=== PATIENT | female | born 1995 | race Caucasian/White ===

== ENCOUNTER 2016-09-24 20:54 | Emergency (ER) ==
[2016-09-24 21:06] VITALS: BP 142/90; TEMP 97.4; BMI 40.7
--- NOTE | 2016-09-24 21:25 | ED.PDOC ---
General ED Provider: Dr. ERON TAVERA Chief Complaint: Abdominal Pain Stated Complaint: been hurting in the stomach for couple days, but today its been hurting more, Time Seen by Physician: 21:24 Mode of Arrival: Walk-In Information Source: Patient Primary Care Provider: KANNAN RODRIGUEZ Nursing and Triage Documentation Reviewed and Agree: Yes GI Complaint Exam - Abdominal Pain Complaint/Exam Onset: Gradual Symptoms Are: Still present Timing: Constant Initial Severity: Moderate Current Severity: Moderate Location of Pain: Discrete Character: Reports: Dull, Aching, Throbbing Aggravating: Reports: Movement, Food Alleviating: Reports: None Associated Signs and Symptoms: Reports: Nausea. Denies: Diaphoresis, Fever, Cough, Chest pain, Dizziness, Back pain, Constipation, Blood in stool, Dysuria, Urinary frequency, Decreased urine output, Decreased appetite, Vaginal bleeding , Vaginal discharge, Vomiting, Diarrhea, Sore throat, Decreased activity Related History: Reports: Similar episode AAA Risk Factors: Reports: None Cardiac Risk Factors: Reports: None Ectopic Risk Factors: Reports: None Ovarian Torsion Risk Factors: Reports: None Surgical Obstruction Risk Factors: Reports: None Related Surgical History: Reports: None Patient Rh Status: Unknown Abdominal Findings: Absent: Pulsatile mass, Abdominal distention, Unequal femoral pulses Differential Diagnoses: Appendicitis, Pancreatitis, Renal Colic, UTI, Review of Systems - Review Of Systems Constitutional: Reports: Malaise, Weakness Eyes: Reports: No symptoms Ears, Nose, Mouth, Throat: Reports: No symptoms Respiratory: Reports: No symptoms Cardiac: Reports: No symptoms GI: Reports: Abdomen distended, Abdominal pain : Reports: No symptoms Musculoskeletal: Reports: No symptoms Skin: Reports: No symptoms Neurological: Reports: No symptoms Endocrine: Reports: No symptoms Hematologic/Lymphatic: Reports: No symptoms All Other Systems: Reviewed and Negative Past Medical History - Past Medical History Previously Healthy: Yes Endocrine: Reports: None Cardiovascular: Reports: None Respiratory: Reports: None Hematological: Reports: None Gastrointestinal: Reports: None Genitourinary: Reports: None Neuro/Psych: Reports: None Musculoskeletal: Reports: None Cancer: Reports: None Last Menstrual Period: LAST WEEK - Surgical History General Surgical History: Reports: Tonsillectomy, Adenoidectomy - Family History Family History: Reports: None - Social History Smoking Status: Current every day smoker, Light tobacco smoker Smoking Cessation Counseling Time: > 3 min - 10 min Hx Substance Use: No Alcohol Screening: None - Immunizations Tetanus Shot up to Date: Yes Physical Exam - Physical Exam Appearance: Ill-appearing, Obese Pain Distress: Moderate Eyes: DARIUSZ, EOMI, Conjunctiva clear ENT: Ears normal, Nose normal, Oropharynx normal Respiratory: Airway patent, Breath sounds clear, Breath sounds equal, Respirations nonlabored Cardiovascular: RRR, Pulses normal, No rub, No murmur GI/: Soft, Tender Musculoskeletal: Normal strength, ROM intact, No edema, No calf tenderness Skin: Warm, Dry, Normal color Neurological: Sensation intact, Motor intact, Reflexes intact, Cranial nerves intact, Alert, Oriented Psychiatric: Affect appropriate, Mood appropriate Interpretation - Radiology Interpretation Radiology Interpretation By: Radiologist Radiology Results: Negative Exam Interpreted: CT Scan Critical Care Note - Critical Care Note Total Time (mins): 0 Course - Course Hematology/Chemistry: 09/24/16 21:35 09/24/16 21:35 Orders, Labs, Meds: Lab Review 09/24/16 09/24/16 21:25 21:35 WBC 12.82 H RBC 4.76 Hgb 12.3 Hct 37.1 MCV 77.9 L MCH 25.8 L MCHC 33.2 RDW Coeff of [place] 13.2 Plt Count 265 Immature Gran % (Auto) 0.3 Neut % (Auto) 72.4 Lymph % (Auto) 19.3 [place] % (Auto) 5.6 Eos % (Auto) 2.2 Baso % (Auto) 0.2 Immature Gran # (Auto) 0.0 Neut # 9.3 H Lymph # 2.5 [place] # 0.7 Eos # 0.3 Baso # 0.0 Sodium 136 Potassium 3.5 Chloride 106 Carbon Dioxide 21 Anion Gap 12.5 BUN 10 Creatinine 0.80 Estimated GFR (MDRD) 91.00 BUN/Creatinine Ratio 12.50 Glucose 145 H Calcium 9.1 Total Bilirubin 0.28 AST 13 L ALT 13 Alkaline Phosphatase 47 Total Protein 7.1 Albumin 3.5 Globulin 3.6 Albumin/Globulin Ratio 0.97 Amylase 24 L Lipase 13 Urine Color Yellow Urine Clarity Clear Urine pH 6.5 Ur Specific [place] 1.015 Urine Protein Negative Urine Glucose (UA) Negative Urine Ketones Negative Urine Blood 2+ Urine Nitrite Negative Urine Bilirubin Negative Urine Urobilinogen 0.2 Ur Leukocyte Esterase Negative Urine Microscopic RBC 2-5 Ur Squamous Epith Cells 5-10 Amorphous Sediment Trace Urine Bacteria Trace Urine Test Negative Orders Category Date Time Status AMYLASE Stat LAB 09/24/16 21:35 Completed CBC W/ AUTO DIFF Stat LAB 09/24/16 21:35 Completed COMPREHENSIVE METABOLIC PANEL Stat LAB 09/24/16 21:35 Completed LIPASE Stat LAB 09/24/16 21:35 Completed URINALYSIS C & S IF INDICATED Stat LAB 09/24/16 21:25 Completed URINE Stat LAB 09/24/16 21:25 Completed Ketorolac Tromethamine [Toradol] MEDS 09/24/16 22:07 Discontinued 60 mg IM ONCE STA Ondansetron HCl/Pf [Zofran 4 mg/2 ml] MEDS 09/24/16 22:07 Discontinued 4 mg IM ONCE STA CT ABDOMEN/PELVIS WO CONTRAST Stat RADS 09/24/16 21:23 Completed Medications Discontinued Medications Generic Name Dose Route Start Last Admin Trade Name Freq PRN Reason Stop Dose Admin Ketorolac Tromethamine 60 mg 09/24/16 22:07 09/24/16 22:15 Toradol IM 09/24/16 22:08 60 mg ONCE STA Administration Ondansetron HCl 4 mg 09/24/16 22:07 09/24/16 22:15 Zofran 4 Mg/2 Ml IM 09/24/16 22:08 4 mg ONCE STA Administration Vital Signs: Temp Pulse Resp BP Pulse Ox 09/24/16 20:54 97.4 F L 89 18 142/90 H 99 Departure - Departure Time of Disposition: 22:51 Disposition: HOME SELF-CARE Discharge Problem: Abdominal pain Instructions: Abdominal Pain (ED) Condition: Stable Pt referred to PMD for follow-up: Yes Additional Instructions: Increase hydration soft diet 3-4 day if not better needs f/u with PMD Allergies/Adverse Reactions: Allergies diphenhydramine [From Benadryl] Adverse Reaction (Verified 09/24/16 21:03) Vomiting prednisone Adverse Reaction (Verified 09/24/16 21:03) Hives Home Medications: Ambulatory Orders 1 [No Reported Medications] 08/21/15 Disposition Discussed With: Patient
[2016-09-24 21:37] LABS: BASOPHILS % (AUTO) 0.2 % (0.0-3.0); EOSINOPHILS # (AUTO) 0.3 K/ul (0.0-0.7); EOSINOPHILS % (AUTO) 2.2 % (0.0-7.0); HEMATOCRIT 37.1 % (37.0-47.0); HEMOGLOBIN 12.3 g/dl (12.0-16.0); IMMATURE GRANULOCYTE % (AUTO) 0.3 % (0.0-5.0); LYMPHOCYTES # (AUTO) 2.5 K/uL (0.60-3.4); LYMPHOCYTES % (AUTO) 19.3 (10.0-50.0); MEAN CORPUSCULAR HEMOGLOBIN 25.8 pg (27.0-31.0); MEAN CORPUSCULAR HGB CONC 33.2 (31.8-35.4); MEAN CORPUSCULAR VOLUME 77.9 fl (81.0-99.0); MONOCYTES # (AUTO) 0.7 K/uL (0.4-2.0); MONOCYTES % (AUTO) 5.6 (0-10); NEUTROPHILS # (AUTO) 9.3 K/ul (2.0-6.9); NEUTROPHILS % (AUTO) 72.4; PLATELET COUNT 265 10^3/uL (140-440); RED BLOOD COUNT 4.76 10^6/ul (4.20-5.40); WHITE BLOOD COUNT 12.82 K/ul (4.6-10.2)
[2016-09-24 21:39] LABS: BILIRUBIN,URINE Negative (NEGATIVE); KETONES,URINE Negative (NEGATIVE); LEUKOCYTE ESTERASE ,URINE Negative (NEGATIVE); NITRITE,URINE Negative (NEGATIVE); PH,URINE 6.5 (5-9); PROTEIN,URINE Negative (NEGATIVE); URINE, BLOOD 2+ (NEGATIVE)
[2016-09-24 21:40] LABS: URINE PREGNANCY INTERNAL QC INTERNAL QC VALID
[2016-09-24 21:44] LABS: ADD URINE MICROSCOPIC YES; BACTERIA,URINE TRACE (NOT PRESENT)
[2016-09-24 21:57] LABS: ALBUMIN 3.5 g/dL (3.4-5.0); ALBUMIN/GLOBULIN RATIO 0.97; ANION GAP 12.5; BILIRUBIN,TOTAL 0.28 mg/dL (0.00-1.20); BUN/CREATININE RATIO 12.5; CALCIUM 9.1 mg/dL (8.2-10.2); CREATININE 0.8 mg/dL (0.60-1.30); POTASSIUM 3.5 mmol/L (3.5-5.10); TOTAL PROTEIN 7.1 g/dL (6.4-8.2)
[2016-09-24] MEDS: ZOFRAN 4 MG/2 ML IM STA (22:15)
[2016-09-24] MEDS: TORADOL IM STA (22:15)
--- NOTE | 2016-09-24 22:43 | CT ---
Exam: CT of the abdomen and pelvis without contrast History: Abdominal pain Technique: [address] of the abdomen and pelvis without intravascular contrast FINDINGS: The lung bases are clear. No significant liver abnormality. The adrenals, pancreas and sp jayashree are unremarkable. The stomach and hiatus are unremarkable.The gallbladder appears normal. Kidne ys and proximal collecting system are unremarkable. The appendix is normal. Bowel loops demonstrate normal caliber. No inflamatory change seen in the mesentery or retroperitoneum. Vascular structures appear normal by noncontrast CT. Pelvic genitourinary structures appear normal. Pelvic bowel loops are unremarkable. No inflammatory change in the pelvic fat. No acute abnormality of the abdominal or pelvic skeleton. Impression: 1. No inflammatory process, bowel or urinary obstruction is seen. No abnormalities of the abdomen or pelvis.
== END 2016-09-24 22:57 | disposition home or self-care (01) ==
LOC: ED 20:54
DX: R10.9 Unspecified abdominal pain (principal); F17.210 Nicotine dependence, cigarettes, uncomplicated
CPT/HCPCS: 36415; 80053; 81001; 81025; 82150; 83690; 85025; 96372; 99283

== ENCOUNTER 2016-10-26 13:06 | Emergency (ER) ==
[2016-10-26 13:06] VITALS: BMI 40.7
[2016-10-26 13:13] VITALS: BP 133/85; TEMP 98.2
--- NOTE | 2016-10-26 13:16 | ED.PDOC ---
General ED Provider: Dr. ZOYA AVINA JR Chief Complaint: Abdominal Pain Stated Complaint: woke up with stomach pain and temp of 99.9[ End ]0400 98.2 90 18 95% 133/85 2/10 placement of control stent..removed for bleeding. [ End ] lmp 10/19/16 smoke need work note States I just need a work excuse now. Had work-up for similar symptooms in September 2016[ End ]. hx preecclampsia not having pain now states had bleeding and pain for one month took couple weeks for pain qnd bleeding to resolve after implant removed(felt this was cause of pain and bleeding) seen in ER no significant problems found, pain resolved for days now back not as bad sharp midabdominal concenred she may be , missed work at [employer]. : 09/24/16 : Abdominal Pain. Stated Complaint: been hurting in the stomach for couple days, but today its been hurting more, Primary Care : KANNAN RODRIGUEZ. : Negative: CT ScanWBC 12.82 HMCV 77.9 L Urine Blood 2+. Urine Test Negative. Ketorolac Tromethamine 60 mgOndansetron HCl 4 mg. Abdominal pain Increase hydration. soft diet 3-4 day if not better needs f/u with PMD Time Seen by Physician: 13:16 Mode of Arrival: Walk-In Information Source: Patient Exam Limitations: No limitations Primary Care Provider: KANNAN RODRIGUEZ Nursing and Triage Documentation Reviewed and Agree: No Review of Systems - Review Of Systems Constitutional: Reports: No symptoms Eyes: Reports: No symptoms Ears, Nose, Mouth, Throat: Reports: No symptoms Respiratory: Reports: No symptoms Cardiac: Reports: No symptoms GI: Reports: Abdominal pain : Reports: Pain Musculoskeletal: Reports: No symptoms Skin: Reports: No symptoms Neurological: Reports: No symptoms Endocrine: Reports: No symptoms Hematologic/Lymphatic: Reports: No symptoms All Other Systems: Other Past Medical History - Past Medical History Previously Healthy: Yes Endocrine: Reports: None Cardiovascular: Reports: None Respiratory: Reports: None Hematological: Reports: None Gastrointestinal: Reports: None Genitourinary: Reports: None Neuro/Psych: Reports: None Musculoskeletal: Reports: None Cancer: Reports: None Last Menstrual Period: 10/19/16 - Surgical History General Surgical History: Reports: Tonsillectomy, Adenoidectomy - Family History Family History: Reports: None - Social History Smoking Status: Current every day smoker, Heavy tobacco smoker Hx Substance Use: No Alcohol Screening: Occasionally Physical Exam - Physical Exam Appearance: Well-appearing, Obese Ill-appearing: Mild Pain Distress: Mild Eyes: DARIUSZ, EOMI, Conjunctiva clear ENT: Ears normal, Nose normal, Oropharynx normal Neck: Supple Respiratory: Airway patent, Breath sounds clear, Breath sounds equal, Respirations nonlabored Cardiovascular: RRR, Pulses normal, No rub, No murmur GI/: Soft, Nontender, No masses, Bowel sounds normal, No Organomegaly Musculoskeletal: Normal strength, ROM intact, No edema, No calf tenderness Skin: Warm, Dry, Normal color Neurological: Sensation intact, Motor intact, Reflexes intact, Cranial nerves intact, Alert, Oriented Psychiatric: Affect appropriate, Mood appropriate Critical Care Note - Critical Care Note Total Time (mins): 0 Course - Course Orders, Labs, Meds: Lab Review 10/26/16 13:22 Urine Color Yellow Urine Clarity Clear Urine pH 6.0 Ur Specific [place] 1.025 Urine Protein Negative Urine Glucose (UA) Negative Urine Ketones Negative Urine Blood Negative Urine Nitrite Negative Urine Bilirubin Negative Urine Urobilinogen 0.2 Ur Leukocyte Esterase Negative Urine Test Negative Orders Category Date Time Status UA [URINALYSIS C & S IF INDICATED] Stat LAB 10/26/16 13:22 Completed URINE Stat LAB 10/26/16 13:22 Completed Vital Signs: Temp Pulse Resp BP Pulse Ox 10/26/16 13:06 98.2 F 90 18 133/85 95 Departure - Departure Time of Disposition: 14:03 Disposition: HOME SELF-CARE Discharge Problem: Abdominal pain Instructions: Abdominal Pain (ED) Condition: Good Pt referred to PMD for follow-up: Yes Additional Instructions: consider using Naprosyn for pain associated with period stop all NSAIDS if stomach pain recheck PMD two weeks off work today Allergies/Adverse Reactions: Allergies diphenhydramine [From Benadryl] Adverse Reaction (Verified 10/26/16 13:17) Vomiting prednisone Adverse Reaction (Verified 10/26/16 13:17) Hives Home Medications: Ambulatory Orders Levonorgestrel-Ethin Estradiol [Levora-28 Tablet] 1 each PO DAILY 10/26/16
[2016-10-26 13:44] LABS: BILIRUBIN,URINE Negative (NEGATIVE); KETONES,URINE Negative (NEGATIVE); LEUKOCYTE ESTERASE ,URINE Negative (NEGATIVE); NITRITE,URINE Negative (NEGATIVE); PROTEIN,URINE Negative (NEGATIVE); URINE PREGNANCY INTERNAL QC INTERNAL QC VALID; URINE, BLOOD Negative (NEGATIVE)
[2016-10-26 13:45] LABS: ADD URINE MICROSCOPIC NO
== END 2016-10-26 14:16 | disposition home or self-care (01) ==
LOC: ED 13:06
DX: R10.9 Unspecified abdominal pain (principal); R50.9 Fever, unspecified; F17.210 Nicotine dependence, cigarettes, uncomplicated
CPT/HCPCS: 81001; 81025; 99283

== ENCOUNTER 2018-08-06 04:35 | Emergency (ER) | payer MEDICAID, OTHER ==
[2018-08-06 04:46] VITALS: BP 140/85; TEMP 97.1; BMI 46.4
--- NOTE | 2018-08-06 05:05 | ED.PDOC ---
General ED Provider: Dr. YAKELIN ISAACS Chief Complaint: Tooth Problem Stated Complaint: patient states she has had a 4 month history of molar pain mostly left lower and mild on the right upper and lower wisdom teeth. Has been using a jell and Tylenol. She states that she is on the waiting list to see a dentist in [place]. she is visiting from out of town. Rates the pain as severe. Time Seen by Physician: 04:55 Mode of Arrival: Walk-In Information Source: Patient Exam Limitations: No limitations Primary Care Provider: KANNAN RODRIGUEZ Nursing and Triage Documentation Reviewed and Agree: Yes Does patient meet sepsis criteria?: No System Inflammatory Response Syndrome: Not Applicable Sepsis Protocol: For patient's 13 years and over: Temp is 96.8 and below OR 101 and greater Pulse >90 BPM Resp >20/minute Acutely Altered Mental Status Are patient's symptoms suggestive of a new infection, such as: -Pneumonia -Skin, Soft Tissue -Endocarditis -UTI -Bone, Joint Infection -Implantable Device -Acute Abdominal Infection -Wound Infection -Meningitis -Blood Stream Catheter Infection -Unknown EENT Complaint Exam - Dental/Oral Complaint/Exam Mechanism of Injury: No known trauma Onset/Duration: 4 months Symptoms Are: Still present Timing: Constant Initial Severity: Mild Current Severity: Moderate Location: Foster teeth on the left lower and both upper and lower right Character: Reports: Aching, Throbbing Aggravating: Reports: Cold, Chewing Alleviating: Reports: None Associated Signs and Symptoms: Denies: Swelling, Discharge, Fever, Foul odor, Foul taste in mouth Related History: Denies: Similar episode Cardiac Risk Factors: Reports: None Dental/Oral Surgical History: Reports: None Tooth Findings: Present: Gross caries, Dental fracture, Abcess Cervical Lymphadenopathy Present: No Facial Swelling Present: No Bleeding Present: No Oropharynx Findings: Absent: Clots, Active bleeding Septal Hematoma: No Foreign Body Present: No Dysphagia Present: No Drooling Present: No Asymmetrical Tonsillar Swelling Present: No Uvula Midline: No Pavithra-tonsillar Fluctuence: No Trismus Present: No Palatal Petechiae Present: No Scarlatinaform Rash Present: No Lesions: Absent: Lip, Gums, Tongue, Buccal Mucosa, Pharynx Exanthem: Absent: Lip, Gums, Tongue, Buccal Mucosa, Pharynx Vesicles: Absent: Lip, Gums, Tongue, Buccal Mucosa, Pharynx Teeth Picture: 1 - dental decay 2 - dental decay Review of Systems - Review Of Systems Constitutional: Reports: No symptoms Eyes: Reports: No symptoms Ears, Nose, Mouth, Throat: Reports: Mouth pain Respiratory: Reports: No symptoms Cardiac: Reports: No symptoms GI: Reports: No symptoms : Reports: No symptoms Musculoskeletal: Reports: No symptoms Skin: Reports: No symptoms Neurological: Reports: No symptoms Endocrine: Reports: No symptoms Hematologic/Lymphatic: Reports: No symptoms All Other Systems: Reviewed and Negative Past Medical History - Past Medical History Previously Healthy: Yes Endocrine: Reports: None Cardiovascular: Reports: None Respiratory: Reports: None Hematological: Reports: None Gastrointestinal: Reports: None Genitourinary: Reports: None Neuro/Psych: Reports: None Musculoskeletal: Reports: None Cancer: Reports: None Last Menstrual Period: 07/23/18 - Surgical History General Surgical History: Reports: Tonsillectomy, Adenoidectomy - Family History Family History: Reports: None - Social History Smoking Status: Current every day smoker, Heavy tobacco smoker Hx Substance Use: No Alcohol Screening: Occasionally - Immunizations Tetanus Shot up to Date: No Physical Exam - Physical Exam Appearance: Well-appearing, Obese Pain Distress: Moderate Eyes: DARIUSZ, EOMI, Conjunctiva clear ENT: Ears normal, Nose normal, Oropharynx normal Neck: Supple Respiratory: Airway patent Cardiovascular: RRR, Pulses normal, No rub, No murmur Skin: Warm, Dry Neurological: Alert, Oriented Critical Care Note - Critical Care Note Total Time (mins): 0 Course - Course Vital Signs: Temp Pulse Resp BP Pulse Ox 08/06/18 04:35 97.1 F L 77 18 140/85 98 Departure - Departure Time of Disposition: 05:12 Disposition: HOME SELF-CARE Discharge Problem: Dental caries noted on examination Instructions: Toothache (ED), Dental Abscess (ED) Condition: Fair Pt referred to PMD for follow-up: Yes IPMP verified?: Yes (no hits) Additional Instructions: stop smoking it makes your tooth decay and pain worse Take Medications as needed for pain Take antibiotics until gone. Follow up with your dentist as soon as possible. Prescriptions: Amoxicillin [Amoxil] 500 mg PO TID #30 capsule Ibuprofen [Motrin] 600 mg PO Q6H PRN #30 tablet PRN Reason: Analgesia Tramadol HCl [Ultram] 50 mg PO Q6H PRN #14 tablet PRN Reason: Severe Pain Allergies/Adverse Reactions: Allergies diphenhydramine [From Benadryl] Adverse Reaction (Verified 08/06/18 04:41) Vomiting prednisone Adverse Reaction (Verified 08/06/18 04:41) Hives Home Medications: Ambulatory Orders Amoxicillin [Amoxil] 500 mg PO TID #30 capsule 08/06/18 Ibuprofen [Motrin] 600 mg PO Q6H PRN #30 tablet 08/06/18 Tramadol HCl [Ultram] 50 mg PO Q6H PRN #14 tablet 08/06/18 Disposition Discussed With: Patient
== END 2018-08-06 05:13 | disposition home or self-care (01) ==
LOC: ED 04:35
DX: K08.89 Other specified disorders of teeth and supporting structures (principal); K02.7 Dental root caries; K04.7 Periapical abscess without sinus; S02.5XXA Fracture of tooth (traumatic), initial encounter for closed fracture; F17.210 Nicotine dependence, cigarettes, uncomplicated
CPT/HCPCS: 99282